=== PATIENT | male | born 1995 | race Caucasian/White ===

== ENCOUNTER 2017-01-12 04:40 | Emergency (ER) | payer OTHER ==
--- NOTE | 2017-01-12 05:49 | ED NECK/BACK PAIN COMPLAINT ---
History of Present Illness General Chief Complaint: Neck/Upper Back Pain/Injury Stated Complaint: BACK PAIN Source: patient, family, old records Exam Limitations: no limitations Vital Signs & Intake/Output Vital Signs & Intake/Output Vital Signs Date Time Temp Pulse Resp B/P B/P Pulse O2 O2 Flow FiO2 Mean Ox Delivery Rate 01/12 0545 86 16 135/81 100 Allergies Coded Allergies: No Known Allergies (01/12/17) Triage Note: TRIAGE: PATIENT TO ER FROM HOME REPORTS +BACK PAIN, PATIENT'S MOTHER ANSWERING QUESTIONS FOR PATIENT AND QUESTIONING STAFF WHEN STAFF REQUESTING PATIENT TO ANSWER QUESTIONS FOR SELF STATING, "HE CAN'T, I CAN ANSWER FOR HIM." Triage Nurses Notes Reviewed? 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 3 days prior to admission he helped his father move furniture and developed worsening mid to low left paraspinal pain described as sharp worse with turning bending moderate to severe not improved with Motrin and Tylenol as constant. He denies fever chills nausea vomiting diarrhea abdominal pain chest pain shortness of breath headache dysuria rash bleeding change in motor sensory function change of bowel bladder habit. Past History Travel History Traveled to [place] past 21 day No Medical History Any Pertinent Medical History? 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 No Review of Systems Review of Systems Constitutional: Reports: no symptoms. Eyes: Reports: no symptoms. Ears, Nose, Throat, Mouth: Reports: no symptoms. Respiratory: Reports: no symptoms. Cardiovascular: Reports: no symptoms. Gastrointestinal/Abdominal: Reports: no symptoms. Musculoskeletal: Reports: see HPI, back pain. Skin: Reports: no symptoms. Neurological/Psychological: Reports: no symptoms. All Other Systems: Reviewed and Negative Physical Exam Physical Exam General Appearance: well developed/nourished, alert, awake, anxious, moderate distress, obese Head: atraumatic, normal appearance Eyes: Bilateral: normal appearance, PERRL, EOMI, normal inspection. Ears, Nose, Throat, Mouth: hearing grossly normal, moist mucous membrane Neck: normal inspection, supple, full range of motion, normal alignment Respiratory: normal breath sounds, chest non-tender, no respiratory distress, quiet respiration, lungs clear Cardiovascular: regular rate/rhythm, normal peripheral pulses, norml femoral pulses equa Gastrointestinal: normal bowel sounds, soft, non-tender, no organomegaly Back: normal inspection, decreased range of motion, muscle spasm, no vertebral tenderness Extremities: normal range of motion, straight leg raised Straight Leg Raising: Right: Pain at ____ degrees (5). Left: Pain at ____ degrees (5). Sensory: Medial Le: L4R, L4L. Top of Foot: 2: L5R, L5L. Sole of Foot: 2: SIR, JULITA. Motor: Deficit L4 Right: No Deficit L4 Left: No Deficit L5 Right: No Deficit L5 Left: No Deficit S1 Right: No Deficit S1 Right: No Ext. Big Toe: 3: L5 Left, L5 Right. DTR: Deficit L4 Left: No Deficit L4 Right: No Deficit S1 Left: No Deficit S1 Right: No Patellar: 3: L4 Right, L4 Left. 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 Discussed w/RAD: CT Scan. Radiology Impression: 1. Lumbar spine: Transitional vertebra at the lumbosacral junction, which may reflect partial lumbarization of L1 on the right with left- sided pseudoarthrosis. No acute findings identified. Suggestion of mild central canal narrowing at L3-L4 and L4-L5 with disc protrusions. If clinically warranted, this may be further assessed with MRI. 2. Thoracic spine: No acute findings identified. Departure Departure Time of Disposition: 649 Disposition: HOME OR SELF CARE Condition: Stable Clinical Impression Primary Impression: Back pain Qualifiers: Back pain location: low back pain Chronicity: acute Back pain laterality: left Sciatica presence: without sciatica Qualified Code: M54.5 - Low back pain Secondary Impressions: Intervertebral disc protrusion, Lumbar pseudoarthrosis Referrals: ADONAY EID,ANDREA Pritchett Call for orthopedic follow up LILLIAN VARGAS MD Call for neurosurgical follow up. Departure Forms: Customer Survey General Discharge Information Prescriptions: Current Visit Scripts Ibuprofen 1 TAB PO Q6PRN PRN pain #50 TAB Baclofen 1 TAB PO TIDPRN PRN muscle spasm/strain #30 TAB Tramadol HCl (Ultram) 1-2 TAB PO Q6PRN PRN severe pain #30 TAB
--- NOTE | 2017-01-12 06:31 | CT SCAN REPORT ---
EXAMINATION: CT THORACIC SPINE WITHOUT CONTRAST CT LUMBAR SPINE WITHOUT CONTRAST CLINICAL INFORMATION: History of congenital back abnormality with worsening pain COMPARISON: None TECHNIQUE: Noncontrast multidetector helical imaging was performed through the thoracic and lumbar spine. Coronal and sagittal reformatted images were created at the technologist workstation. DLP: 1774.81 mGy-cm FINDINGS: Thoracic spine: Multilevel Schmorl's nodes are noted throughout the mid to lower thoracic spine. There is anatomic alignment of the thoracic vertebral bodies and posterior elements. Vertebral body heights are maintained. No acute fracture is seen. No appreciable paraspinal soft tissue swelling. The central canal appears maintained, though soft tissue assessment is relatively limited on CT. Visualized portions of the lungs and mediastinum appear unremarkable. Lumbar spine: There are 5 nonrib-bearing lumbar vertebrae and a transitional vertebra at the lumbosacral junction, which may reflect partial right-sided lumbarization of L1 with left-sided pseudoarthrosis. There is anatomic alignment of the lumbar vertebral bodies and posterior elements. Vertebral body heights are maintained. Intervertebral disc spaces are preserved. No acute fracture is seen. There may be mild central canal narrowing at L3-L4 and L4-L5 with mild disc protrusions. Included portions of the abdomen appear unremarkable. IMPRESSION: 1. Lumbar spine: Transitional vertebra at the lumbosacral junction, which may reflect partial lumbarization of L1 on the right with left-sided pseudoarthrosis. No acute findings identified. Suggestion of mild central canal narrowing at L3-L4 and L4-L5 with disc protrusions. If clinically warranted, this may be further assessed with MRI. 2. Thoracic spine: No acute findings identified.
[2017-01-12] MEDS ORDERED: ULTRAM50 M1 PO (07:00)
[2017-01-12] MEDS ORDERED: BACLOFEN10 M1 PO (07:00)
[2017-01-12] MEDS ORDERED: IBUPROFEN800 M1 PO (07:00)
[2017-01-12 07:41] VITALS: BP 128/78
== END 2017-01-12 07:41 ==
LOC: ERH 04:40
DX: S32.009A Unspecified fracture of unspecified lumbar vertebra, initial encounter for closed fracture (principal); M51.26 Other intervertebral disc displacement, lumbar region; X58.XXXA Exposure to other specified factors, initial encounter; Y92.9 Unspecified place or not applicable; Y93.9 Activity, unspecified
CPT/HCPCS: 96374; 96375; J1885; J3360